=== PATIENT | male | born 1970 | race Two or more races ===

== ENCOUNTER 2017-05-03 11:45 | Day surgery (SDC) | payer SELFPAY ==
[2017-04-30 09:05] VITALS: BMI 27.4
[2017-05-03] MEDS ORDERED: BACITRACIN 15 GM TUBE TOPICAL OINTMENT ONE (13:46)
[2017-05-03] MEDS ORDERED: LIDOCAINE 1%/EPI 1:100000 (20 ML MULTI DOSE VIAL) ONE ×3 (13:46→16:02)
[2017-05-03] MEDS ORDERED: AMPICILLIN NA/SULBACTAM NA 1.5 GM VIAL IVPB ONE ×2 (14:35→20:15)
[2017-05-03] MEDS ORDERED: OXYMETAZOLINE 0.05% NASAL SOLUTION 15 ML BOTTLE NS ONE ×2 (14:45→15:05)
[2017-05-03] MEDS ORDERED: EPINEPHrine/PF 1 MG/1 ML (1:1,000) AMPULE ONE (14:53)
[2017-05-03] MEDS ORDERED: LIDOCAINE 1%/EPI 1:100000 (20 ML MULTI DOSE VIAL) IJ ONE ×2 (15:05)
[2017-05-03] MEDS ORDERED: EPINEPHrine/PF 1 MG/1 ML (1:1,000) AMPULE SQ ONE (15:15)
[2017-05-03] MEDS ORDERED: DEXAMETHASONE SOD PHOSPHATE 4 MG/1 ML VIAL ONE (18:27)
[2017-05-03] MEDS ORDERED: AMPICILLIN NA/SULBACTAM NA 1.5 GM VIAL ONE (20:16)
[2017-05-03] MEDS ORDERED: BACITRACIN 15 GM TUBE TOPICAL OINTMENT TP ONE (20:58)
[2017-05-03] MEDS ORDERED: ONDANSETRON 4 MG/2 ML VIAL IVPUSH PRN (21:42)
[2017-05-03] MEDS ORDERED: oxyCODONE HCL 5 MG TABLET PO PRN ×2 (21:42→21:49)
[2017-05-03] MEDS ORDERED: ELECTROLYTE-148 SOLN 1,000 ML IV SCH (21:45)
[2017-05-03] MEDS ORDERED: ONDANSETRON 4 MG/2 ML VIAL IVPB PRN (21:49)
[2017-05-03] MEDS ORDERED: MORPHINE SULFATE 10 MG/1 ML *VIAL IVPUSH PRN (21:49)
--- NOTE | 2017-05-03 21:56 | OP ---
Operative Note - Note: Operative Date: 05/03/17 Pre-Operative Diagnosis: cosmetic Operation: septorhinoplasty with neck liposuction, bilateral lower eyelid blepharoplasty, fat grafting to malar area and tear trough, Post-Operative Diagnosis: Same as Pre-op Surgeon: Aris Sotomayor Anesthesia: General
[2017-05-03] MEDS ORDERED: LACTATED RINGERS SOLUTION 1,000 ML IV SCH (22:00)
[2017-05-04] MEDS ORDERED: AMPICILLIN NA/SULBACTAM NA 3 GM in SODIUM CHLORIDE 100 ML IVPB SCH (02:00)
--- NOTE | 2017-05-04 09:03 | PN ---
Progress Note (short form) - Note Progress Note: POD 1 VSS AF Full motor nerve function No corneal abrasion, EOMI, no diplopia, normal vision bilat Minimal and appropriate epistaxis, Nasal tip viable ABD benign OK for dischargte with head elevation and leaving dressings on and dry until follow up.
[2017-05-04 10:53] VITALS: BP 102/62; PULSE 63; TEMP 97.8
--- NOTE | 2017-05-07 09:31 | OP ---
DATE OF OPERATION: 05/03/2017 TITLE OF PROCEDURE: Septoplasty, rhinoplasty, bilateral lower eyelid blepharoplasty, neck liposuction, fat harvesting from anterior abdomen with fat grafting to bilateral nasolabial folds, cheeks, and tear troughs. ATTENDING SURGEON: Aris Sotomayor MD PERSONAL INJURY ATTORNEY: None. ANESTHESIA: General endotracheal anesthesia. The patient is seen in the holding area, counseled on all risks, benefits, and alternatives to the procedure. He understands and agrees to proceed. He is awake and aware of all incisions and resulting scars, as well as the limitations of the procedure as well as the unpredictability of fat graft viability. The patient also understands that the nasal septal deviation which at its inferior base is quite severe, may not be able to be entirely reduced. DESCRIPTION OF PROCEDURE: The patient is brought to the operating room, placed in a supine position. Ogden catheter is placed, which is removed at the end of the procedure. Ancef 1 g is given preoperatively. He is prepped and draped in standard surgical fashion, after which timeout is called, patient, procedure, side, sites are verified. At this point the abdomen is then addressed. It is injected with 100 mL of wetting solution which includes only 1 L of normal saline and 1 ampule of 1:100,000 epinephrine. Several stab wound incisions are made along the border of the pubic hairline as well as in the umbilicus. Using a 1-mm Tulip fat harvesting cannula and syringe-assisted manual technique, a total of 80 mL of lipoaspirate is yielded and allowed to gravity settle in 60-mL syringes during the remaining portion of the case for later use as fat grafting. The harvesting sites are closed with a series of interrupted 5-0 nylon suture and Steri-Strips. The patient is then reprepped and draped for the head and neck portion of the procedure. At this point the nose is prepped with Afrin-soaked 1/2-inch cottonoids. The nasal septum is injected with 1% lidocaine, 1:100,000 epinephrine, as well as the nasal dorsum and columella in anticipation of open rhinoplasty. After completion of this and the prepping and draping, the transcolumella incision is made and dissection is connected to bilateral rimming incisions through which the cartilaginous tip complex is able to be dissected cleanly at the level of the cartilages. The dissection is then continued over the dorsum, exposing the upper lateral cartilages and the bony dorsal hump. At this point the tip complex is retracted inferiorly to expose the anterior septal angle. The septum is dissected sharply. Submucoperichondrial plane is dissected on each side, and then using [place] and [place] elevators, the septum is dissected with preserved nontraumatized mucoperiosteal flaps on either side. A C-shaped septal deformity is seen, and a submucosal resection of the deformed septum is then marked, leaving 1.5-cm dorsal and caudal L-strut. The septum is harvested. There is a more inferior portion of the septum which does not communicate directly with the main portion of the septum. Addressing this would require an additional incision with mucosa, which I did not feel was indicated. This inferior portion of the septum did not appear to be obstructing the patient's airway either. Using this septal cartilage, this resected piece of septal cartilage was preserved for use as a graft. The patient's nasal dorsum is then addressed with dorsal takedown of the cartilage in minimal, less than 2-mm, amount, and a dorsal rasping of the bone to match the cartilaginous height. Once this is completed, bilateral medial osteotomies are performed with a 3-mm guarded straight osteotome, then piriform aperture incisions are made which are injected also with 1% lidocaine with 1:100,000 epinephrine. Lidocaine is injected along the interior and exterior aspects of the piriform aperture of the nasal process of the maxillary bone. A Romain elevator is used to strip the periosteum off of the superficial surface of the bone, and a 4-mm curved single guarded osteotome is used for bilateral lateral osteotomies which are able to mobilize the bilateral nasal bone complexes to the midline. At the completion of this, it is determined that there remains some middle vault collapse on the right side for which the harvested septal cartilage will be used as a geology instructor graft. The geology instructor graft is formed and inset into the space between the dorsal septum and the right upper lateral cartilage, there secured with 2 separate 5-0 PDS sutures to correct the dorsal irregularity. The 5-0 Prolene clocking suture is used between the periosteum of the right nasal bone remnant as well as through the complex of the dorsal septum and septal geology instructor graft. This mobilizes the septum 1 mm to the right. After squeezing the edema out of the nose, the position of the dorsum appears to be midline between the mobilization of the nasal bones as well as the correction of the deviated septum. Attention is then directed toward the nasal tip where a 2-mm cephalic trim is performed bilaterally, leaving 9-mm rim strips which are positioned in the midline. The segments that had been for exposure are reapproximated with a single mattressed 5-0 Prolene suture. The tip definition and projection are excellent, and no further tip graft or strut is required. Closure of the nose is then performed at the transcolumellar incision with a series of interrupted 6-0 Prolene suture followed by a series of interrupted 5-0 chromic gut suture along the rimming incisions. The piriform aperture incisions are allowed to remain open. Internal Silastic splints are then placed to provide septal support and secured with a single 4-0 Prolene mattress suture through the membranous septum. An external Eagle splint is then applied. The nasal tip is pink and viable. Gloves are changed at this point. The attention is then directed toward the upper eyelid blepharoplasties. Wetting solution is then injected into the submental area for which liposuction is planned and allowed to sit during the lower eyelid blepharoplasties. Each lower eyelid is injected with 3 mL of 1% lidocaine with 1:100,000 epinephrine. After allowing adequate time, the eyes are protected with Lacri-Lube and a subciliary incision is made, carried into a lateral tuscarora's foot incision. The skin flap is elevated and converted after a full centimeter into a skin muscle flap. Dissection is then carried down to the level of the orbital rim. The orbital septum is able to be seen with pseudoherniated fat. Small stab wound incisions are made within each of the mediolateral and central compartments where a judicious amount of fat is excised using [place]-tip cautery, hemostasis meticulously achieved. The muscle portion of the skin muscle flap is then pexed to the lateral periosteum of the orbital rim in order to support the lower eyelid and correct a malar bag deformity. This is done with a 5-0 Vicryl suture. A minimal amount of skin is then excised along the flaps, and a closure is performed along the lateral tuscarora's foot with a series of interrupted 6-0 Prolene suture and along the subciliary line with a running 6-0 fast-absorbing plain gut suture. This is repeated identically bilaterally. At this point the neck is made well tumescent, and through incisions just posterior to either earlobe as well as a submental incision, each 5 mm, a 2-mm liposuction cannula is performed using suction machine and tubing. Liposuction is performed. The endpoint is smooth, even contour by pinch test. These incision holes are closed with a series of interrupted 6-0 nylon suture. The harvested fat is then and decanted into 1-mL syringes. Using a blunt-tip 1-mm Jordan-style cannula through 1-mm incisions on the cheek in multiple locations, fat grafting is performed using Jordan technique of multiple passes and small droplets along the cheek hollow inferior to the malar bag, nasojugal fold, as well as the mid malar. This was performed bilaterally. A total of 0.[address] fat is place in each tear trough, nasojugal fold, and an additional 5 mL into each cheek. This is done bilaterally. Nasolabial folds are then injected through apical nasal fold incisions, again using a 1-mm Jordan blunt cannula and a Jordan technique. A total of 2 mL of fat is injected into each of these nasolabial folds. These injection sites are closed with 6-0 nylon suture. The patient is then dressed with supporting Banks-style Steri-Strips dressings, Bacitracin to the tip of the nose, a submental compression garment. He was awoken from anesthesia, having tolerated the procedure well, complaining of no foreign body sensation, entirely neurologically intact, brought to the recovery room without complication. ARIS SOTOMAYOR M.D. [id number]
== END 2017-05-04 10:55 | disposition home or self-care (01) ==
LOC: JOR 11:45 → JASUSAT 11:45 → J8W 23:30 → JOR 05-04 10:55
PROVIDERS: ATTEND Plastic Surgery